=== PATIENT | female | born 1985 | race Caucasian/White ===

== ENCOUNTER 2021-09-24 11:50 | Emergency (ER) | payer BC, OTHER ==
[~2021-09-24] VITALS: Ht 157.5 cm; Wt 109.3 kg
[2021-09-24] MEDS ORDERED: JARDIANCE25 MG (12:14)
[2021-09-24] MEDS ORDERED: OZEMPIC0.25 MG/0. SC (12:14)
[2021-09-24] MEDS ORDERED: LORATADINE10 MG PO (12:57)
[2021-09-24] MEDS ORDERED: FAMOTIDINE20 MG PO (12:57)
[2021-09-24] MEDS ORDERED: PROVENTIL HFA6.7 GM INH (12:57)
== END 2021-09-24 13:12 | disposition home or self-care (01) ==
LOC: FSED 11:54
DX: R05.9 Cough, unspecified (principal); J20.9 Acute bronchitis, unspecified; E11.9 Type 2 diabetes mellitus without complications
CPT/HCPCS: 71046; 99283